=== PATIENT | female | born 1960 | race Caucasian/White ===

== ENCOUNTER 2016-11-30 00:46 | Emergency (ER) | payer OTHER ==
[2016-11-30] MEDS ORDERED: ACETAMINOPHEN 325 MG TABLET ONE (03:54)
[2016-11-30] MEDS ORDERED: IBUPROFEN 600 MG TABLET ONE (03:54)
== END 2016-11-30 04:18 | disposition home or self-care (01) ==
LOC: ED 00:46
DX: M54.5 Low back pain (principal); G89.29 Other chronic pain; M25.512 Pain in left shoulder; M25.511 Pain in right shoulder; F17.210 Nicotine dependence, cigarettes, uncomplicated
CPT/HCPCS: 99283 ×2; A9270 ×2